=== PATIENT | female | born 1990 | race Caucasian/White ===

== ENCOUNTER 2017-05-13 13:14 | Inpatient (IN) ==
[2017-05-19] MEDS ORDERED: ZOLPIDEM 5 MG TABLET PO PRN (11:20)
[2017-05-19] MEDS ORDERED: SALINE FLUSH 10ml SYRINGE IV PRN ×2 (11:20→20:18)
[2017-05-19] MEDS ORDERED: HYDROCODONE/APAP 5mg/325mg TABLET PO PRN (11:20)
[2017-05-19] MEDS ORDERED: NALBUPHINE 10 MG/ML INJECTION IVP PRN (11:21)
[2017-05-19] MEDS ORDERED: CALCIUM CARBONATE Chewable 500mg TABLET PO PRN ×2 (11:21→20:18)
[2017-05-19] MEDS ORDERED: CARBOPROST 250 MCG/ML INJECTION IM PRN (11:21)
[2017-05-19] MEDS ORDERED: LIDOCAINE 1% (10mg/ml) 2mL INJ PF SDV ID PRN (11:21)
[2017-05-19] MEDS ORDERED: METHYLERGONOVINE 0.2 MG/ML INJECTION IM PRN (11:21)
[2017-05-19] MEDS ORDERED: MAG-AL + SIM ORAL LIQUID 30ml PO PRN (11:21)
[2017-05-19] MEDS ORDERED: ACETAMINOPHEN 500 MG TABLET PO PRN ×2 (11:21→20:18)
[2017-05-19] MEDS: LR 1,000 ML IV PRN ×3 (12:49→18:28)
--- NOTE | 2017-05-19 15:06 | Anesthesia Preoperative Report ---
Anesthesia Epidural/Spinal Rec - Date and Time Date: 05/19/17 Preoperative Diagnosis: 41 wk Procedure: Labor Epidural Plan: Epidural - Vital Signs Vital Signs: Temperature 98.4 F 05/19/17 12:33 Pulse Rate 60 05/19/17 12:33 Respiratory Rate 20 05/19/17 12:33 Blood Pressure 112/79 05/19/17 12:33 /Para: P:0 - Medictaions & Allergies Inpatient Medications: Current Medications Acetaminophen (Tylenol) 500 - 1,000 mg PO Q4H PRN PRN Reason: Pain Hydrocodone Bitart/Acetaminophen (Story 5/325) 1 - 2 tab PO Q4H PRN PRN Reason: Pain Al Hydroxide/Mg Hydroxide (Maalox Plus) 30 ml PO Q3H PRN PRN Reason: Indigestion Calcium Carbonate (Tums) 500 - 1,000 mg PO Q2H PRN PRN Reason: Indigestion Carboprost Tromethamine (Hemabate) 250 mcg IM O PRN PRN Reason: .Downtime Lactated Ringer's (Lactated Ringers) 1,000 mls @ 999 mls/hr IV .Q1H1M PRN Last Admin: 05/19/17 14:41 Dose: 999 mls/hr Lidocaine HCl (Xylocaine-Mpf 1% Vial) 0.2 mg ID O PRN PRN Reason: IV Start Methylergonovine Maleate (Methergine) 0.2 mg IM O PRN Misoprostol (Cytotec) 800 mcg VT ONCE PRN Nalbuphine HCl (Nubain) 5 - 10 mg IVP Q1H PRN Sodium Chloride (Iv Flush) 10 - 80 ml IV PRN PRN PRN Reason: Flushing Last Admin: 05/19/17 12:50 Dose: 10 ml Zolpidem Tartrate (Ambien) 5 mg PO O PRN PRN Reason: Insomnia Allergies/Adverse Reactions: Allergies Allergy/AdvReac Type Severity Reaction Status Date / Time isotretinoin AdvReac Verified 04/28/17 09:32 - Home Medications Home Medications: Home Medications Medication Instructions Recorded Confirmed Type Acetaminophen [Tylenol] 1,000 mg PO Q5H 04/28/17 04/28/17 History Butalb/Acetaminophen/Caffeine 1 each PO PRN 04/28/17 04/28/17 History [Fioricet] Vit 108/Iron/Folic AC 1 tab PO DAILY 04/28/17 04/28/17 History [ One Tablet] - Surgical History Anesthesia Reactions: None Hx Family Anesthesia Reaction: No History of Motion Sickness: No - Social History Smoking Status: Never smoker Second Hand Exposure: No Substance Use Type: does not use Alcohol Intake Frequency: does not drink Hx Chewing Tobacco Use: No - Pertinent Findings Lab Data: CBC and BMP 05/19/17 12:19 05/19/17 12:19 BMP 05/19/17 12:19 Sodium 141 Potassium 3.9 Chloride 110 H Carbon Dioxide 19 L BUN 6.0 L Creatinine 0.6 L Glucose 81 Calcium 9.6 Liver Function 05/19/17 Range/Units 12:19 Total Bilirubin 0.40 (0.20-1.30) MG/DL AST 18 (14-36) U/L ALT 31 (9-52) U/L Alkaline Phosphatase 120 (38-126) U/L Albumin 3.7 (3.5-5.0) G/DL Urine 05/19/17 Range/Units 13:00 Urine Color Yellow (YELLOW) Urine Clarity Sl cloudy Urine pH 7.5 (5.0-8.0) Ur Specific Handley 1.010 L (1.015-1.025) Urine Protein Negative (NEGATIVE) Urine Glucose (UA) Negative (NEGATIVE) EKG Rhythm: Normal Sinus Rhythm - Physical Exam Respiratory Exam: lungs clear Cardiovascular Exam: regular rate and rhythm, no murmur - Airway Assessment Mallampati Score: III TMD: 3 Fingerbreadths Neck Extension: good Overall Assessment: may be difficult mask vent, may be difficult intubation - ASA ASA Score: 2 - Discussion Discussion: Discussed risks/options/alternatives of anesthesia and questions answered. Patient consents. Nursing pain assessment noted. Anesthesia Discussion: spouse Attestation Statement: Prior to the delivery of any anesthetic medication, I examined the patient, developed the plan, obtained the patient's consent and discussed the risk and benefits of the procedure with the patient/guardian.
[2017-05-19] MEDS ORDERED: OXYTOCIN DRIP 30 UNIT/500 ML ML IV PRN (16:04)
[2017-05-19] MEDS ORDERED: D5LR 1,000 ML IV PRN (16:04)
[2017-05-19] MEDS ORDERED: DiphenhydrAMINE 50 MG/ML INJECTION IVP PRN (16:58)
[2017-05-19] MEDS ORDERED: ONDANSETRON 4 MG/2 ML INJECTION IVP PRN (16:58)
[2017-05-19] MEDS ORDERED: NALOXONE 0.4 MG/ML INJECTION IVP PRN (16:58)
[2017-05-19] MEDS ORDERED: ROPIVACAINE 1% 10MG/ML INJ 200 MG, SUFentanil 50 MCG in NS 100 ML EPI PRN (16:58)
[2017-05-19] MEDS ORDERED: CITRIC ACID/SODIUM CITRATE 30ml PO ONE (17:15)
[2017-05-19] MEDS ORDERED: CEFAZOLIN PREMIX (MC ONLY) 2 GM/50 ML BAG IV ONE (17:15)
[2017-05-19] MEDS ORDERED: FAMOTIDINE PB 20 MG/50 ML BAG IV ONE (17:15)
[2017-05-19] MEDS ORDERED: PHENYLEPHRINE INJ 10 MG/ML VIAL IV ONE (17:22)
[2017-05-19] MEDS ORDERED: SALINE FLUSH 10ml SYRINGE ONE (17:22)
[2017-05-19] MEDS ORDERED: ONDANSETRON 4 MG/2 ML INJECTION ONE (17:56)
[2017-05-19] MEDS: OXYTOCIN BOLUS BAG 30 UNIT/500 ML ML IV SCH ×2 (18:00→18:28)
[2017-05-19] MEDS: D5LR 1,000 ML IV SCH (18:47)
[2017-05-19] MEDS ORDERED: DiphenhydrAMINE 25 MG CAPSULE PO PRN (20:18)
[2017-05-19] MEDS ORDERED: SIMETHICONE 80 MG CHEWABLE TABLET PO PRN (20:18)
[2017-05-19] MEDS ORDERED: METOCLOPRAMIDE 10mg/2ml INJECTION IVP PRN (20:18)
[2017-05-19] MEDS ORDERED: NALOXONE 2 MG/2 ML INJECTION PFS IVP PRN (20:18)
[2017-05-19] MEDS ORDERED: OXYTOCIN DRIP 30 UNIT/500 ML ML IV SCH (20:18)
[2017-05-19] MEDS ORDERED: HYDROCORTISONE 2.5% CREAM 30gm RECTALLY PRN (20:18)
[2017-05-19] MEDS: HYDROCODONE/APAP 5mg/325mg TABLET PO PRN (20:49)
[2017-05-19] MEDS: IBUPROFEN 800 MG TABLET PO PRN (20:49)
[2017-05-19 21:08] VITALS: BMI 27.2
--- NOTE | 2017-05-19 22:55 | Anesthesia Postoperative Note ---
- Date and Time Date: 05/19/17 Time: 22:54 - Status Patient Participated in Evaluation: Patient Participated in Person Vital Signs: Temperature 98.4 F 05/19/17 12:33 Pulse Rate 76 05/19/17 21:40 Respiratory Rate 16 05/19/17 21:40 Blood Pressure 131/79 05/19/17 21:40 Pulse Oximetry 100 05/19/17 21:40 Respiratory Function: Airway Patent Cardiovascular Function: Regular Pulse EKG: Sinus Rhythm Mental Status: Alert and Oriented Pain Intensity: 0 Hydration: Taking PO Fluids, IV Infusing Complications During Recover: None Apparent - Follow-Up Instructions Instructions: Per Surgeon
[2017-05-20] MEDS: HYDROCODONE/APAP 5mg/325mg TABLET PO PRN ×5 (01:35→19:58)
[2017-05-20] MEDS: SIMETHICONE 80 MG CHEWABLE TABLET PO SCH ×3 (01:45→21:09)
[2017-05-20] MEDS ORDERED: LIDOCAINE 1.5% W/EPI 1:200,000 30ml SDV PF ONE (05:52)
[2017-05-20] MEDS: IBUPROFEN 800 MG TABLET PO PRN ×2 (07:13→15:29)
[2017-05-20] MEDS: D5LR 1,000 ML IV SCH ×2 (07:39→21:08)
[2017-05-20] MEDS: DOCUSATE CALCIUM 240 MG CAPSULE PO SCH (09:13)
--- OUTSIDE RECORDS SUMMARY | 2017-05-20 09:41 | External Medical Summary | Continuity of Care Document ---
:1990 Author Organization [facility] Address [address] [place], [place] [id number] Phone Support Name Relationship Address Phone Mitchel Fernandes [address] [place] [address] [phone] [place] [address] Ian Alvarado spouse [address] [facility] [phone] [place] [address] Allergies, Adverse Reactions, Alerts Substance Reaction Severity Status isotretinoin Unknown Active Medications Medication Instructions Dosage Effective Dates Status Comments (start - stop) ranitidine 150 mg take 1 tablet by 150 MG - Active tablet oral route every day at bedtime as needed loratadine 10 mg take 1 tablet by 10 MG - Active tablet oral route every day as needed butalbital-acetami take 1 - 2 capsule Not Available - Active nophen-caffeine 50 by oral route every mg-300 mg-40 mg 6 hours as needed capsule not to exceed 6 capsules per 24hrs Tylenol Extra take 2 tablet by 1000 MG - Active Strength 500 mg oral route every 6 tablet hours as needed as needed ORAL - Active TABLET Problems Condition Effective Dates (start - stop) Clinical Status Encntr for suprvsn of normal first - preg, second trimester 27 weeks gestation of - Oth related conditions, - third trimester 36 weeks gestation of - Encntr for suprvsn of normal first - preg, third trimester 37 weeks gestation of - Maternal care for oth - abnormality and damage, unsp 33 weeks gestation of - Maternal care for oth - abnormality and damage, unsp Encntr for suprvsn of normal first - preg, third trimester 33 weeks gestation of - Maternal care for oth - abnormality and damage, unsp Encntr for suprvsn of normal first - preg, third trimester 31 weeks gestation of - 29 weeks gestation of - Encntr for suprvsn of normal first - preg, third trimester Encntr for suprvsn of normal first - preg, third trimester Encounter for screening of - mother 35 weeks gestation of - Encntr for suprvsn of normal first - preg, third trimester 36 weeks gestation of - Encntr for suprvsn of normal first - preg, third trimester 38 weeks gestation of - Procedures Procedure Date Unknown Results Test Name Date and Time Measure Units Reference Range Abnormal Flag Comments Unknown Advance Directives Directive Yes / No Effective Date File Name Unknown Encounters Encounter Practice Location Reason(s) Diagnoses Date Provider Care Team Description For Visit Members Natasha [place] Encntr for Sep-1 Alpesh In Womens suprvsn of normal 1-201 [facility]. [facility] [place], first preg, third 7 700 [address] [email or web address] weeks Medical 1522, gestation of [facility] Donell Dixon, 120, [id number], [facility] [place], tel: [phone] , [place]. tel: [phone] Natasha [place] Encntr for Sep-0 Alpesh In Womens suprvsn of normal 5-201 [facility]. [facility] [place], first preg, third 7 700 PO [address] [email or web address] weeks Medical 1522, gestation of [facility] Donell Dixon, 120, [id number], [facility] [place], tel: [phone] , [place]. tel: [phone] Natasha [place] Encntr for Aug-2 Alpesh In Womens suprvsn of normal 9-201 [facility]. [facility] [place], first preg, third 7 700 PO Box [email or web address] weeks Medical 1522, gestation of [facility], Donell Dixon, 120, [id number], [place], tel:[phone] , [place]. tel: [phone] Associates Joe Ot Aug-2 Melo In Womens related 5-201 Neeru. Health KERRY, conditions, third 7 700 [address] [email or web address] weeks Medical 1522, gestation of [facility], Donell Dixon, 120, [id number], [place], tel: [phone] , [place]. tel: [phone] Natasha [place] Aug-2 Alpesh In Womens 5-201 Negar. Health EKRRY, 7 700 PO Box Medical 1522, [facility], Donell Dixon, 120, [id number], [place], tel:[phone] , [place]. tel: [phone] Natasha [place] Encntr for Aug-2 Alpesh In Womens suprvsn of normal - Negar. Health KERRY, first preg, third 7 700 PO Box trimesterEncounte Medical 1522, r for [facility] [place], screening of Donell Dixon, [email or web address] weeks 120, , gestation of [place], tel:[phone] , [place]. tel: [phone] Natasha [place] Maternal care for Aug-0 Alpesh Referring In Womens oth - Negar. Provider: Health KERRY, abnormality and 7 700 Negar PO Box damage, Medical Alpesh L, 1522, unspEncntr for Center [address] [place] [address], suprvsn of normal Donell Dixon, first preg, third 120, Center [id number], [email or web address] weeks Joe [facility] 120, [place] gestation of MAIKELJoe, tel: [phone] [place], , [place]. [id number]. tel: tel: [phone] Natasha [place] Maternal care for Aug-0 Alpesh In Womens Ultrasound oth - Neg[facility]. Health [place], abnormality and 7 700 PO Box damage, [email or web address] Medical 1522, weeks gestation [facility], of Donell Dixon, 120, [id number], [place], tel:+ [phone] , [place]. tel: [phone] Associates Joe Maternal care for Ha-2 Alpesh In Womens oth 4-201 Negar. [facility] [place], abnormality and 7 700 PO Box damage, Medical 1522, unspEncntr for [facility] [place], suprvsn of normal Donell Dixon, first preg, third 120, [id number], [email or web address] weeks [place], gestation of [place], tel:+ [phone] , [place]. tel: [phone] Associates Joe 29 weeks Ha-1 Alpesh In Womens gestation of 0-201 Neg[facility]. [facility] [place], pregnancyEncntr 7 700 PO Box for suprvsn of Medical 1522, normal first [place] Yash, preg, third Donell Dixon, trimester 120, , [place], tel:+ [phone] , [place]. tel: [phone] Associates Joe Encntr for Kevin-2 Alpesh In Womens suprvsn of normal 6-201 Neg[facility]. [facility] [place], first preg, 7 700 PO Box second Medical 1522, [email or web address] [facility] of Donell Dixon, 120, [id number], [place], tel:[phone] , [place]. tel: [phone] Natasha [place] May-2 Alfonso In Womens 3-201 Yung. 700 Health PA, 7 Medical PO Box Center 1522, Donell Dixon, 120, [place], [place], [id number], [place], [place] [id number] tel:+ , [place]. tel: [phone] Family History Family Member Diagnosis Age At Onset No family history of Pulmonary Embolism Maternal Grandfather Stroke No family history of Venous Thrombosis Maternal Grandmother Ovarian Cancer Maternal Grandfather Cardiovascular Disease Immunizations Vaccine Date Status Comments Tdap completed Source: New Immunization Record Payers Payer name Insurance type Covered democrat ID Authorization(s) [facility] [id number] [facility] [id number] Social History Type Description Quantity Date Captured Unknown Vital Signs Date / Height Weight BMI Pulse Blood Temperature Respiratory Body Head BMI Time: Rate Pressure Rate Surface Circumference percentile Area Unknown Chief Complaint And Reason For Visit Unknown Chief Complaint And Reason For Visit Reason For Referral Reason For Referral Unknown Plan Of Care Date Type Action Status Appointment Yulissa Alvarado BOOKED Future Order: Radiology Order Ultrasound OB Follow-up ([id number]) Ordered Date Type Problem Goal Intervention Status Start Date Unknown. History Of Present Illness Encounter Date Complaint History Of Present Illness This patient has no known history of present illness Functional Status Encounter Date Functional Assessment Cognitive Assessment Unknown Medications Administered Medication Instructions Dosage Effective Dates (start - stop) Status Comments Drug Treatment Unknown Instructions Date Instruction Additional Information Unknown
--- OUTSIDE RECORDS SUMMARY | 2017-05-20 09:41 | External Medical Summary | Continuity of Care Document ---
:1990 Author Organization [facility] Address [address] [place], [place] [address] Phone Support Name Relationship Address Phone Mitchel Fernandes [address] [place] [address] [phone] [place] [address] Ian Alvarado spouse [address] [facility] [phone] [place] [address] Allergies, Adverse Reactions, Alerts Substance Reaction Severity [...] Effective Dates (start - stop) Clinical Status Oth related conditions, - third trimester 36 weeks gestation of - Encntr for suprvsn of normal first - preg, second trimester 27 weeks gestation of - Encntr for suprvsn [...] weeks gestation of - Procedures Procedure Date OB Visit No Charge Results Test Name Date and Time Measure Units Reference Range Abnormal Flag Comments Unknown Advance Directives Directive Yes / No Effective Date File Name Unknown Encounters Encounter Practice Location Reason(s) Diagnoses Date Provider Care Team Description For Visit Members Natasha [place] Encntr for Sep-1 Alpesh In Womens suprvsn of normal 1-201 [facility]. [facility] [place], first preg, third 7 700 PO Box weeks Medical 1522, gestation of [facility] Donell Dixon, 120, [id number], [facility] [place], tel: [phone] , [place]. tel: [phone] Natasha [place] Encntr for Sep-0 Alpesh In Womens suprvsn of normal 5-201 Negar. [facility] [place], first preg, third 7 700 PO Box [email or web address] weeks Medical 1522, gestation of [facility] Donell Dixon, 120, [id number], [facility], tel: [phone] , [place]. tel: [phone] Natasha [place] Encntr for Aug-2 Alpesh In Womens suprvsn of normal 9-201 Negar. Health [place], first preg, third 7 700 PO Box [email or web address] weeks Medical 1522, gestation of [facility], Donell Dixon, 120, [id number], [place], tel:[phone] , [place]. tel: [phone] Associates Joe Ot Aug-2 Melo In Womens related 5-201 Neeru. Health KERRY, conditions, third 7 700 PO Box [email or web address] weeks Medical 1522, gestation of [facility], Donell Dixon, 120, [id number], [place], tel:[phone] , [place]. tel: [phone] Natasha [place] Encntr for Aug-2 Alpesh In Womens suprvsn of normal - Negar. Health KERRY, first preg, third 7 700 PO Box trimesterEncounte Medical 1522, r for [facility], screening of Donell Dixon, [email or web address] weeks 120, , gestation of [facility] [place], tel:[phone] , [place]. tel: [phone] Natasha [place] Maternal care for Aug-0 Alpesh Referring In Womens oth - Negar. Provider: Health KERRY, abnormality and 7 700 Negar PO Box damage, Medical Alpesh L, 1522, unspEncntr for Center [address] [place] [address], suprvsn of normal Donell Dixon, first preg, third 120, Center [id number], [email or web address] weeks Donell [place] 120, [place] gestation of Joe [place], tel: [phone] [place], , [place]. [id number]. tel: tel: [phone] Natasha [place] Maternal care for Aug-0 Alpesh In Womens Ultrasound oth - Negar. Health KERRY, abnormality and 7 700 PO Box damage, [email or web address] Medical 1522, weeks gestation [facility], of Donell Dixon, 120, [id number], [place], tel:[phone] , [place]. tel: [phone] Natasha [place] Maternal care for Ha-2 Alpesh In Womens oth 4-201 Negar. Health PA, abnormality and 7 700 PO Box damage, Medical 1522, unspEncntr for Center [place], suprvsn of normal Donell Dixon, first preg, third 120, [id number], [email or web address] weeks [place], gestation of [place], tel:[phone] , [place]. tel: [phone] Natasha [place] 29 weeks Ha-1 Alpesh In Womens gestation of 0-201 Negar. Health [place], pregnancyEncntr 7 700 PO Box for suprvsn of Medical 1522, normal first Center Yash, preg, third Donell Dixon, trimester 120, [id number], [place], tel:[phone] , [place]. tel: [phone] Natasha [place] Encntr for Kevin-2 Alpesh In Womens suprvsn of normal 6-201 Negar. Health PA, first preg, 7 700 PO Box second Medical 1522, [email or web address] weeks [place] Yash, gestation of Donell Dixon, 120, [id number], [place], tel:[phone] , [place]. tel: [phone] Natasha [place] May-2 Alfonso In Womens 3-201 Yung. 700 Health PA, 7 Medical PO Box Center 1522, oDnell Dixon, 120, [place], [place], [id number], [place], [place] [id number] tel:+ , [place]. tel: [phone] Family History Family Member Diagnosis Age At Onset No family history of Pulmonary Embolism Maternal Grandfather Stroke No family history of Venous Thrombosis Maternal Grandmother Ovarian Cancer Maternal Grandfather Cardiovascular Disease Immunizations Vaccine Date Status Comments Tdap completed Source: New Immunization Record Payers Payer name Insurance type Covered libertarian ID Authorization(s) [facility] [id number] [employer] [place] [id number] Social History Type Description Quantity Date Captured Alcohol Use Details No Caffeine Use Details Unknown Tobacco Use Status Unknown Smoking Status Never smoker Vital Signs Date / Height Weight BMI Pulse Blood Temperature Respiratory Body Head BMI Time: Rate Pressure Rate Surface Circumference percentile Area 170.10 38.1 108/ lbs 3 mm[Hg] 2:21 kg/m PM eter (2) Chief Complaint And Reason For Visit Unknown Chief Complaint And Reason For Visit Reason For Referral Reason For Referral Unknown Plan Of Care Date Type Action Status Appointment Yulissa Alvarado BOOKED Future Order: Radiology Order Ultrasound OB Follow-up ([id number]) Ordered Date Type Problem Goal Intervention Status [...]
--- OUTSIDE RECORDS SUMMARY | 2017-05-20 09:41 | External Medical Summary | Continuity of Care Document ---
:1990 Author Organization [facility] Address [address] [place], [place] [id number] Phone Support Name Relationship Address Phone Mitchel Fernandes [address] [place] [address] [phone] [place] [address] Ian Alvarado spouse [address] [facility] [phone] [place] [address] Allergies, Adverse Reactions, Alerts Substance Reaction Severity Status isotretinoin Unknown Active Medications Medication Instructions Dosage Effective Dates Status Comments (start - stop) butalbital-acetami take 1 - 2 capsule Not [...] Effective Dates (start - stop) Clinical Status Maternal care for oth - abnormality and damage, unsp 33 weeks gestation of - Encntr for suprvsn of normal first - preg, second trimester 27 weeks gestation of - Oth related conditions, - third trimester 36 weeks gestation of - Maternal care for oth - abnormality and damage, unsp Encntr for suprvsn of normal first - preg, third trimester 33 weeks gestation of - Maternal care for oth - abnormality and damage, unsp Encntr for suprvsn of normal first - preg, third trimester 31 weeks gestation of - Encntr for suprvsn of normal first - preg, third trimester 29 weeks gestation of - Encounter for screening of - mother Encntr for suprvsn of normal first - preg, third trimester 35 weeks gestation of - Procedures Procedure Date Ultrasnd preg uterus, flwup/repeat Results Test Name Date and Time Measure Units Reference Range Abnormal Flag Comments Unknown Advance Directives Directive Yes / No Effective Date File Name Unknown Encounters Encounter Practice Location Reason(s) Diagnoses Date Provider Care Team Description For Visit Members Natasha [place] Oth Mar-2 Melo In Womens related 5- Neeru. Health KERRY, conditions, 7 700 [address], third [place], [place], Center [id number], weeks Donell Dixon gestation of 120, tel: [place], [phone] [place], [id number] , [place]. tel: [phone] Natasha [place] Encounter for 2 Alpesh In Womens - Negar. Meet PAYNE, screening of 7 700 [address], motherEncntr [place], for suprvsn Center [id number], of normal Donell Dixon first preg, 120, tel: third [place], [address] [place], weeks [id number] gestation of , [place]. tel: [phone] Natasha [place] Maternal care 0 Alpesh Referring In Womens for oth 7-201 Negar. Provider: Health KERRY, abnormality 7 700 Negar [address], and damage, Medical Alpesh , [place], unspEncntr Center 700 [id number], for suprvsn Donell Dixon of normal 120, Center tel: first preg, Donell [place] 120, [id number] third MAIKEL, [place], [email or web address] [id number] [place], weeks , [place]. [id number]. gestation of tel: tel: [phone] Natasha [place] Maternal care Mar-0 Alpesh In Womens Ultrasound for oth 7-201 Negar. Health PA, abnormality 7 700 [address], and damage, [place], [email or web address] weeks Center [id number], gestation of Donell Dixon 120, tel:+[phone] [place] [phone] [place], [id number] , [place]. tel: [phone] Associates Joe Maternal care Ha-2 Alpesh In Womens for oth 4-201 Negar. Health PA, abnormality 7 700 [address], and damage, [place], unspEncntr Center [id number], for suprvsn Donell Dixon of normal 120, tel:[phone] first preg, [place], [address] third [place], [email or web address] [id number] weeks , [place]. gestation of tel: [phone] Associates Joe Encntr for Ha-1 Alpesh In Womens suprvsn of 0-201 Negar. Health PA, normal first 7 700 [address], preg, third [place], Center [id number], weeks Donell Dixon gestation of 120, tel:+21 [place], [address] [place], [id number] , [place]. tel: [phone] Associates Joe [place] for Kevin-2 Alpesh In Womens suprvsn of 6-201 Negar. Health PA, normal first 7 700 [address], preg, second [place], [email or web address] Center [id number], weeks Donell Dixon gestation of 120, tel:+21 Joe [phone] [place], [id number] , [place]. tel: [phone] Natasha [place] May-2 Alfonso In Womens 3-201 Yung. 700 Health [place], 7 Medical [address], Center [place], Donell Dixon [id number], 120, [place], tel:[phone] [place], [id number] , [place]. tel: [phone] Family History Family Member Diagnosis Age At Onset No family history of Pulmonary Embolism Maternal Grandfather Stroke No family history of Venous Thrombosis Maternal Grandmother Ovarian Cancer Maternal Grandfather Cardiovascular Disease Immunizations Vaccine Date Status Comments Tdap completed Source: New Immunization Record Payers Payer name Insurance type Covered democrat ID [facility] [id number] [id number] Social History Type Description Quantity Date Captured Unknown Vital Signs Date / Height Weight BMI Pulse Blood Temperature Respiratory Body Head BMI Time: Rate Pressure Rate Surface Circumference percentile Area Unknown Chief Complaint And Reason For Visit Unknown Chief Complaint And Reason For Visit Reason For Referral Reason For Referral Unknown Plan Of Care Date Type Action Status Appointment Yulissa Alvarado BOOKED Appointment Yulissa Alvarado BOOKED Appointment Yulissa Alvarado BOOKED Appointment Yulissa Alvarado BOOKED Future Order: Radiology Order Ultrasound OB Follow-up ([id number]) Ordered Date Type Problem Goal Intervention Status [...]
--- OUTSIDE RECORDS SUMMARY | 2017-05-20 09:41 | External Medical Summary | Continuity of Care Document ---
:1991 Author Organization [facility] Address [address] [place], [place] [id number] Phone Support Name Relationship Address Phone Mitchel Fernandes [address] [place] [address] [phone] [place] [address] Ian Alvarado spouse [address] [facility] [phone] [place] [address] Allergies, Adverse Reactions, Alerts Substance Reaction Severity [...] first preg, third 7 700 PO Box [email or web address] weeks Medical 1522, gestation of [facility] Donell Dixon, 120, [id number], [facility] [place], tel: [phone] , [place]. tel: [phone] Natasha [place] Encntr for Sep-0 Alpesh In Womens suprvsn of normal 5-201 Negar. Health PA, first preg, third 7 700 PO Box weeks Medical 1522, gestation of [facility] Donell Dixon, 120, [id number], [facility], tel: [phone] , [place]. tel: [phone] Natasha [place] Encntr for Aug-2 Alpesh In Womens suprvsn of normal 9-201 Negar. Health PA, first preg, third 7 700 PO Box [email or web address] weeks Medical 1522, gestation of [facility], Donell Dixon, 120, [id number], [place], tel:[phone] , [place]. tel: [phone] Associates Joe Ot Aug-2 Melo In Womens related 5-201 Neeru. Health KERRY, conditions, third 7 700 PO Box [email or web address] weeks Medical 1522, gestation of [facility], Donell Dixon, 120, [id number], [place], tel:[phone] , [place]. tel: [phone] Natasha [place] Encntr for Aug-2 Alpesh In Womens suprvsn of normal - Negar. Health KERRY, first preg, third 7 700 PO Box trimesterEncounte Medical 1522, r for [facility], screening of Donell Dixon, weeks 120, , gestation of [facility] [place], tel:[phone] , [place]. tel: [phone] Natasha [place] Maternal care for Aug-0 Alpesh Referring In Womens oth - Negar. Provider: Health KERRY, abnormality and 7 700 Negar PO Box damage, Medical Alpesh L, 1522, unspEncntr for Center [address] [place] [address], suprvsn of normal Donell Dixon, first preg, third 120, Center [id number], [email or web address] weeks Donell [place] 120, [place] gestation of Joe KO, tel: [phone] [place], , [place]. [id number]. tel: tel: [phone] Natasha [place] Maternal care for Aug-0 Alpesh In Womens Ultrasound oth - Negar. Health KERRY, abnormality and 7 700 PO Box damage, [email or web address] Medical 1522, weeks gestation [facility], of Donell Dixon, 120, [id number], [place], tel:[phone] , [place]. tel: [phone] Natasha [place] Maternal care for Ha-2 Alpesh In Womens oth 4-201 Negar. Health PA, abnormality and 7 700 PO Box damage, Medical 1522, unspEncntr for Center [place], suprvsn of normal Donell Dixon, first preg, third 120, [id number], [email or web address] weeks [place], gestation of [place], tel:[phone] , [place]. tel: [phone] Natasha [place] 29 weeks Ha-1 Alpesh In Womens gestation of 0-201 Negar. Health PA, pregnancyEncntr 7 700 PO Box for suprvsn of Medical 1522, normal first Center Yash, preg, third Donell Dixon, trimester 120, [id number], [place], tel:[phone] , [place]. tel: [phone] Natasha [place] Encntr for Kevin-2 Alpesh In Womens suprvsn of normal 6-201 Negar. Health PA, first preg, 7 700 PO Box second Medical 1522, [email or web address] weeks [place] Yash, gestation of Donell Dixon, 120, [id number], [place], tel:[phone] , [place]. tel: [phone] Natasha [place] May-2 Alfonso In Womens 3-201 Yung. 700 Health PA, 7 Medical PO Box Center 1522, Donell Dixon, 120, [place], [place], [id number], [place] [id number] tel:+ , [place]. tel: [phone] Family History Family Member Diagnosis Age At Onset No family history of Pulmonary Embolism Maternal Grandfather Stroke No family history of Venous Thrombosis Maternal Grandmother Ovarian Cancer Maternal Grandfather Cardiovascular Disease Immunizations Vaccine Date Status Comments Tdap completed Source: New Immunization Record Payers Payer name Insurance type Covered constitution party ID Authorization(s) [facility] CI [id number] [employer] CI [id number] Social History Type Description Quantity Date Captured [...] Plan Of Care Date Type Action Status Future Order: Radiology Order Ultrasound OB Follow-up ([id number]) Ordered Date Type Problem Goal Intervention Status [...]
--- OUTSIDE RECORDS SUMMARY | 2017-05-20 09:41 | External Medical Summary | Continuity of Care Document ---
:1991 Author Organization [facility] [employer] [facility] Address [address] [place], [place] [id number] Phone Support Name Relationship Address Phone Mitchel Fernandes [address] [place] [address] [phone] [place] [address] Ian Alvarado spouse [address] [facility] [phone] [place] [address] Allergies, Adverse Reactions, Alerts Substance Reaction Severity Status isotretinoin Unknown Active Medications Medication Instructions Dosage Effective Dates (start - Status Comments stop) ORAL TABLET - Active Problems Condition Effective Dates (start - stop) Clinical Status Encntr for suprvsn of normal first - preg, third trimester 29 weeks gestation of - Encntr for suprvsn of normal first - preg, second trimester 27 weeks gestation of - Maternal care for oth - abnormality and damage, unsp Encntr for suprvsn of normal first - preg, third trimester 31 weeks gestation of - Procedures Procedure Date OB Visit No Charge Glucose test Hemoglobin count, colorimetric Hematocrit blood count Venpnctr fngr/heel/ear stick routne Results Test Name Date and Time Measure Units Reference Range Abnormal Flag Comments Panel Description: Glucose [Mass/volume] in Serum or Plasma --1 hour post 50 g glucose PO GLUCOSE, GESTATIONAL 81 mg/dL <140 N Test performed at [facility] (50G)-140 09:34:00 [facility] [id number] [place] [address]Iuhgfbkg: TRACE ESPARZA DO,MPH Panel Description: HEMOGLOBIN + HEMATOCRIT HEMOGLOBIN 09:34:00 12.3 g/dL 11.7-15.5 N HEMATOCRIT 09:34:00 36.3 % 35.0-45.0 N REPORT COMMENT:FASTING :NOTest performed at [employer] [id number] [place] [address]Zrbpncdb: TRACE ESPARZA DO,MPH Advance Directives Directive Yes / No Effective Date File Name Unknown Encounters Encounter Practice Location Reason(s) Diagnoses Date Provider Care Team Description For Visit Members [facility] Negar. PA, PO Box abnormality 700 1522, and damage, [place], [place], unspEncntr Center , , [place] for suprvsn Donell 120, tel:[phone] of normal Joe, 67 first preg, [place], third [id number], [email or web address] [place]. weeks tel:[phone] gestation of [id number] [facility] for [facility] Negar. PA, PO Box normal first 700 1522, preg, third [place], [place], [email or web address] , [place] weeks Donell 120, tel:[phone] gestation of Joe, 6790 [place], [id number], [place]. tel:[phone] [facility] for [facility] Negar. PA, PO Box normal first 700 1522, preg, second [place], [place], [email or web address] , [place] weeks Donell 120, tel:[phone] gestation of Joe, 6790 [place], [id number], [place]. tel:[phone] [facility] -2016 Yung. 700 [place], PO Box Medical 1522, Center Yash [place], Donell 120, [id number], [place] Joe, tel:[phone] [place], [facility] [id number], [place]. tel:[phone] Family History Family Member Diagnosis Age At Onset No family history of Pulmonary Embolism Maternal Grandfather Stroke No family history of Venous Thrombosis Maternal Grandmother Ovarian Cancer Maternal Grandfather Cardiovascular Disease Immunizations Vaccine Date Status Comments Unknown Payers Payer name Insurance type Covered libertarian ID Authorization(s) [facility] [id number] Social History Type Description Quantity Date Captured Alcohol Use Details No Caffeine Use Details Unknown Tobacco Use Status Never smoked tobacco Smoking Status Never smoker Vital Signs Date / Height Weight BMI Pulse Blood Temperature Respiratory Body Head BMI Time: Rate Pressure Rate Surface Circumference percentile Area 165.50 37.1 lbs 0 mm[Hg] 8:30 kg/m AM eter (2) 36.4 5 mm[Hg] 8:28 kg/m AM eter (2) Chief Complaint And Reason For Visit Unknown Chief Complaint And Reason For Visit Reason For Referral Reason For Referral Unknown Plan Of Care Date Type Action Status Appointment Yulissa Alvarado BOOKED Appointment Yulissa Alvarado BOOKED Appointment Yulissa Alvarado BOOKED Appointment Yulissa Alvarado BOOKED Appointment Yulissa Alvarado BOOKED Appointment Yulissa Alvarado BOOKED Appointment Yulissa Alvarado BOOKED Date Type Problem Goal Intervention Status Start [...]
--- OUTSIDE RECORDS SUMMARY | 2017-05-20 09:41 | External Medical Summary | Continuity of Care Document ---
:1991 Author Organization [facility] Address [address] [place], [place] [id number] Phone Support Name Relationship Address Phone Mitchel Fernandes [address] [place] [address] [phone] [place] [address] Ian Alvarado spouse [address] [facility] [phone] [place] [address] Allergies, Adverse Reactions, Alerts Substance Reaction Severity [...] third trimester 33 weeks gestation of - Encntr for [...] Procedures Procedure Date OB Visit No Charge Immuniz admnin, 1 vac, sngl/combo 19 Yrs + TDAP VACCINE >7 IM Results Test Name Date and Time Measure Units Reference Range Abnormal Flag Comments Unknown Advance Directives Directive Yes / No Effective Date File Name Unknown Encounters Encounter Practice Location Reason(s) Diagnoses Date Provider Care Team Description For Visit Members Natasha [place] Oth Mar-2 Melo In Womens related -201 Neeru. Health KERRY, conditions, 7 [address], third [place], [email or web address] Center [id number], weeks Donell Dixon gestation of 120, tel: [place], [phone] [place], [id number] , [place]. tel: [phone] Natasha [place] Encounter for Mar-2 Alpesh In Womens - Negar. Health KERRY, screening of 7 700 [address], motherEncntr [place], for suprvsn Center [id number], of normal Donell Dixon first preg, 120, tel: third [place], [address] [email or web address] [place], weeks [id number] gestation of , [place]. tel: [phone] Natasha [place] Maternal care Aug-0 Alpesh Referring In Womens for oth -201 Negar. Provider: Health KERRY, abnormality 7 700 Negar [address], and damage, Medical [place], unspEncntr Center 700 [id number], for suprvsn Donell Dixon [facility] of normal 120, Center tel: first preg, Joe [facility] 120, [address] third [place], [place], [id number] [place], weeks , [place]. [id number]. gestation of tel: tel:[phone] Associates Joe Maternal care Aug-0 Alpesh In Womens Ultrasound for oth 7-201 Negar. Health PA, abnormality 7 700 [address], and damage, [place], unsp33 weeks Center [id number], gestation of Donell Dixon [place] 120, tel:+[phone] Joe, [address] [place], [id number] , [place]. tel: [phone] Associates Joe Maternal care Ha-2 Alpesh In Womens for oth 4-201 Negar. Health PA, abnormality 7 700 [address], and alana, [place], unspEncntr Center [id number], for suprvsn Donell Dixon of normal 120, tel:+21 first preg, [place], [address] third [place], [email or web address] [id number] weeks , [place]. gestation of tel: [phone] Associates Joe Encntr for Ha-1 Alpesh In Womens suprvsn of 0-201 Negar. Health PA, normal first 7 700 [address], preg, third [place], [email or web address] Center [id number], weeks Donell Dixon [place] gestation of 120, tel:+ Joe, [address] [place], [id number] , [place]. tel: [phone] Associates Joe Georgentr for Kevin-2 Alpesh In Womens suprvsn of 6-201 Negar. Health PA, normal first 7 700 [address], preg, second [place], [email or web address] Center [id number], weeks Donell Dixon [place] gestation of 120, tel:[phone] Joe, [address] [place], [id number] , [place]. tel: [phone] Associates Joe May-2 Alfonso In Womens 3-201 Yung. 700 Health PA, 7 Medical [address], [place], Donell Dixon [id number], 120, [place] Joe, tel:[phone] MAIKEL, [id number] , [place]. tel: [phone] Family History Family Member Diagnosis Age At Onset No family history of Pulmonary Embolism Maternal Grandfather Stroke No family history of Venous Thrombosis Maternal Grandmother Ovarian Cancer Maternal Grandfather Cardiovascular Disease Immunizations Vaccine Date Status Comments Tdap completed Source: New Immunization Record Payers Payer name Insurance type Covered democrat ID Authorization(s) [facility] [id number] [employer] [id number] Social History Type Description Quantity Date Captured [...] Future Order: Radiology Order Ultrasound OB Follow-up ([id number]) Ordered Date Type Problem Goal Intervention Status [...]
--- OUTSIDE RECORDS SUMMARY | 2017-05-20 09:42 | External Medical Summary | Continuity of Care Document ---
:1991 Author Organization [facility] Address [address] [place], [place] [address] Phone Support Name Relationship Address Phone Mitchel Fernandes [address] [place] [address] [phone] [place] [address] Ian Alvarado spouse [address] [facility] [phone] [place] [address] Allergies, Adverse Reactions, Alerts Substance Reaction Severity [...] third trimester 36 weeks gestation of - Procedures Procedure Date OB Visit No Charge Cult, pathgnc orgnsm, screen Results Test Name Date and Time Measure Units Reference Range Abnormal Flag Comments Panel Description: STREPTOCOCCUS, GROUP B CULTURE STREPTOCOCCUS, GROUP B 10:55:00 SEE NOTE STREPTOCOCCUS, GROUP B CULTURE CULTURE MICRO NUMBER: [id number] TEST STATUS: FINAL SPECIMEN SOURCE: VAGINAL/ANORECTAL SPECIMEN QUALITY: ADEQUATE RESULT: No group B Streptococcus isolatedTest performed at [email or web address] [id number] [place] [address]Unngreaj: TRACE ESPARZA DO,MPH Advance Directives Directive Yes / No Effective Date File Name Unknown Encounters Encounter Practice Location Reason(s) Diagnoses Date Provider Care Team Description For Visit Members Natasha Peacock for Apr- Alpesh In Womens suprvsn of normal 5-201 Negar. Health PA, first preg, third 7 700 PO Box [email or web address] weeks Medical 1522, gestation of [facility] Donell Dixon, 120, [id number], [place] MAIKEL [place], tel:-[phone] 734167 , [place]. tel:[phone] Natasha Peacock for Mar- Alpesh In Womens suprvsn of normal 9-201 Negar. Health PA, first preg, third 7 700 PO Box [email or web address] weeks Medical 1522, gestation of [facility], Donell Dixon, 120, [id number], [place], [place], tel:[phone] , [place]. tel: [phone] Natasha [place] Ot Aug-2 Melo In Womens related 5-201 Neeru. Health PA, conditions, third 7 700 PO Box [email or web address] weeks Medical 1522, gestation of [facility], Donell Dixon, 120, [id number], [place], tel: [phone] , [place]. tel: [phone] Natasha [place] Encntr for Aug-2 Alpesh In Womens suprvsn of normal -201 Negar. Health PA, first preg, third 7 700 PO Box trimesterEncounte Medical 1522, r for [facility], screening of Donell Dixon, [email or web address] weeks 120, , gestation of [place], tel:[phone] , [place]. tel: [phone] Natasha [place] Maternal care for Aug-0 Alpesh Referring In Womens oth 7-201 Negar. Provider: Health PA, abnormality and 7 700 Negar PO Box damage, Medical Alpesh L, 1522, unspEncntr for Center [address] [place] [address], suprvsn of normal Donell Dixon, first preg, third 120, Center [id number], [email or web address] weeks Donell [place] 120, [place] gestation of Joe KO, tel: [phone] [place], , [place]. [id number]. tel: tel: [phone] Natasha [place] Maternal care for Aug-0 Alpesh In Womens Ultrasound oth -201 Negar. Health PA, abnormality and 7 700 PO Box damage, [email or web address] Medical 1522, weeks gestation [facility], of Donell Dixon, 120, [id number], [place], tel:[phone] , [place]. tel: [phone] Natasha [place] Maternal care for Ha-2 Alpesh In Womens oth 4-201 Negar. Health PA, abnormality and 7 700 PO Box damage, Medical 1522, unspEncntr for Center [place], suprvsn of normal Donell Dixon, first preg, third 120, [id number], [email or web address] weeks [place], gestation of [place], tel:[phone] [address] , [place]. tel: [phone] Associates Joe Encntr for Ha-1 Alpesh In Womens suprvsn of normal 0-201 Negar. Health PA, first preg, third 7 700 PO Box [email or web address] weeks Medical 1522, gestation of [facility], Donell Dixon, 120, [id number], [place], [place], tel:+ [phone] , [place]. tel: [phone] Associates Joe Encntr for Kevin-2 Alpesh In Womens suprvsn of normal 6-201 Negar. Health PA, first preg, 7 700 PO Box second Medical 1522, [email or web address] weeks [facility], gestation of Donell Dixon, 120, [id number], [place], [place], tel:[phone] , [place]. tel: [phone] Associates Joe May-2 Alfonso In Womens 3-201 Yung. 700 Health PA, 7 Medical PO Box Center 1522, Donell Dixon, 120, [place], [place], [id number], [place], [place] [id number] tel:+ , [place]. tel: [phone] Family History Family Member Diagnosis Age At Onset No family history of Pulmonary Embolism Maternal Grandfather Stroke No family history of Venous Thrombosis Maternal Grandmother Ovarian Cancer Maternal Grandfather Cardiovascular Disease Immunizations Vaccine Date Status Comments Tdap completed Source: New Immunization Record Payers Payer name Insurance type Covered republican ID Authorization(s) [employer] [id number] [employer] [id number] Social History Type Description Quantity Date Captured Alcohol Use Details No Caffeine Use Details Unknown Tobacco Use Status Unknown Smoking Status Never smoker Vital Signs Date / Height Weight BMI Pulse Blood Temperature Respiratory Body Head BMI Time: Rate Pressure Rate Surface Circumference percentile Area 169.40 37.9 125/82 -2017 lbs 8 mm[Hg] 9:59 kg/m AM eter (2) 37.4 -2016 4 9:50 kg/m AM eter (2) Chief Complaint And Reason For Visit Unknown Chief Complaint And Reason For Visit Reason For Referral Reason For Referral Unknown Plan Of Care Date Type Action Status Appointment Yulissa Alvarado BOOKED Appointment Yulissa Alvarado BOOKED Future Order: Radiology Order Ultrasound OB Follow-up ([id number]) Ordered Date Type Problem Goal Intervention Status [...]
--- OUTSIDE RECORDS SUMMARY | 2017-05-20 09:42 | External Medical Summary | Continuity of Care Document ---
:1991 Author Organization [facility] Address [address] [place], [place] [address] Phone Support Name Relationship Address Phone Mitchel Fernandes [address] [place] [address] [phone] [place] [address] Ian Alvarado spouse [address] [facility] [phone] [place] [address] Allergies, Adverse Reactions, Alerts Substance Reaction Severity [...] third trimester 37 weeks gestation of - Encntr for suprvsn [...] for oth - abnormality and damage, unsp 31 weeks gestation of - Encntr for [...] third trimester 38 weeks gestation of - Encntr for suprvsn of normal first - preg, third trimester 39 weeks gestation of - Procedures Procedure Date OB Visit No Charge Results Test Name Date and Time Measure Units Reference Range Abnormal Flag Comments Unknown Advance Directives Directive Yes / No Effective Date File Name Unknown Encounters Encounter Practice Location Reason(s) Diagnoses Date Provider Care Team Description For Visit Members Associates Joe Encntr for Sep-1 Alpesh In Womens suprvsn of normal 9-201 Negar. Health PA, first preg, third 7 700 PO Box [email or web address] weeks Medical 1522, gestation of [facility] Donell Dixon, 120, [id number], [facility] [place], tel:[phone] [phone] , [place]. tel: [phone] Natasha [place] Encntr for Sep-1 Alpesh In Womens suprvsn of normal 1-201 Negar. Health PA, first preg, third 7 700 PO Box [email or web address] weeks Medical 1522, gestation of [facility] Donell Dixon, 120, [id number], [facility] [place], tel:[phone] , [place]. tel: [phone] Associates Joe Encntr for Sep-0 Alpesh In Womens suprvsn of normal 5-201 Negar. Health KERRY, first preg, third 7 700 PO Box [email or web address] weeks Medical 1522, gestation of [facility], Donell Dixon, 120, [id number], [place], tel:[phone] , [place]. tel: [phone] Associates Joe Encntr for Aug-2 Alpesh In Womens suprvsn of normal 9-201 Negar. Health KERRY, first preg, third 7 700 PO Box [email or web address] weeks Medical 1522, gestation of [facility], Donell Dixon, 120, [id number], [place], [place], tel:[phone] , [place]. tel: [phone] Associates Joe Ot Aug-2 Melo In Womens related 5-201 Neeru. Health KERRY, conditions, third 7 700 PO Box [email or web address] weeks Medical 1522, gestation of [facility], Donell Dixon, 120, [id number], [place], tel:[phone] , [place]. tel: [phone] Natasha [place] Encntr for Aug-2 Alpesh In Womens suprvsn of normal 1-201 Negar. Health KERRY, first preg, third 7 700 PO Box trimesterEncounte Medical 1522, r for [facility], screening of Donell Dixon, [email or web address] weeks 120, , gestation of [facility] [place], tel:[phone] , [place]. tel: [phone] Natasha [place] Maternal care for Aug-0 Alpesh Referring In Womens oth 7-201 Negar. Provider: Health KERRY, abnormality and 7 700 Negar PO Box damage, Medical Alpesh L, 1522, unspEncntr for Center [facility] [place], suprvsn of normal Donell Dixon, first preg, third 120, Center [id number], [email or web address] weeks Donell [place] 120, [place] gestation of Joe KO, tel:[phone] [place], , [place]. . tel: tel: [phone] Associates Joe Maternal care for Aug-0 Alpesh In Womens Ultrasound oth 7-201 Negar. Health PA, abnormality and 7 700 PO Box damage, [email or web address] Medical 1522, weeks gestation [facility] [place], of Donell Dixon, 120, , [place], [place], tel:[phone] , [place]. tel: [phone] Associates Joe Maternal care for Ha-2 Alpesh In Womens oth 4-201 Negar. Health PA, abnormality and 7 700 PO Box damage, [email or web address] Medical 1522, weeks gestation [facility], of Donell Dixon, pregnancyEncntr 120, [id number], for suprvsn of [facility] normal first [place], tel: preg, third [id number] trimester , [place]. tel: [phone] Associates Joe 29 weeks Ha-1 Alpesh In Womens gestation of 0-201 Negar. Health PA, pregnancyEncntr 7 700 PO Box for suprvsn of Medical 1522, normal first [place], preg, third Donell Dixon, trimester 120, , [place], [place], tel:[phone] , [place]. tel: [phone] Associates Joe Encntr for Kevin-2 Alpesh In Womens suprvsn of normal 6-201 Negar. Health KERRY, first preg, 7 700 PO Box second Medical 1522, [email or web address] weeks [place], gestation of Donell Dixon, 120, [id number], [place], [place], tel: [phone] , [place]. tel: [phone] Associates Joe May-2 Alfonso In Womens 3-201 Yung. 700 Health PA, 7 Medical PO Box Center 1522, Donell Dixon, 120, [place], [place], [id number], [place], [place] [id number] tel: , [place]. tel: [phone] Family History Family Member Diagnosis Age At Onset No family history of Pulmonary Embolism Maternal Grandfather Stroke No family history of Venous Thrombosis Maternal Grandmother Ovarian Cancer Maternal Grandfather Cardiovascular Disease Immunizations Vaccine Date Status Comments Tdap completed Source: New Immunization Record Payers Payer name Insurance type Covered libertarian ID Authorization(s) [employer] [id number] [employer] [id number] Social History Type Description Quantity Date Captured Alcohol Use Details No Caffeine Use Details Unknown Tobacco Use Status Unknown Smoking Status Never smoker Vital Signs Date / Height Weight BMI Pulse Blood Temperature Respiratory Body Head BMI Time: Rate Pressure Rate Surface Circumference percentile Area 171.80 38.5 lbs 1 mm[Hg] 11:36 kg/m AM eter (2) Chief Complaint And Reason For Visit Unknown Chief Complaint And Reason For Visit Reason For Referral Reason For Referral Unknown Plan Of Care Date Type Action Status Appointment Yulissa Alvarado KEPT Future Order: Radiology Order Ultrasound OB Follow-up ([id number]) Ordered Date Type Problem Goal Intervention Status [...]
--- OUTSIDE RECORDS SUMMARY | 2017-05-20 09:42 | External Medical Summary | Continuity of Care Document ---
:1990 Author Organization [facility] Allergies Active Description Code Type Severity Reaction Onset Reported/ Identified Relationship Clinical to Patient Status Yes isotretinoin 1 1 N/A N/A Medications Medication Packaging Start Date Stop Date Route Dosage Sig Capsule 04/15/2017 take 1 BUTALBITAL-ACETA - 2 capsule MINOPHEN-CAFFE by oral route every 6 hours as needed not to exceed 6 capsules per 24hrs Problems Date Dx Coded Attending Type Code Diagnosis Diagnosed By 03/28/2017 Negar Betts O35.8xx0 Maternal care for L oth abnormality and damage, [facility] 03/28/2017 Negar Betts Z34.03 Encntr for suprvsn L of normal first preg, third trimester 03/28/2017 Negar Betts Z3A.33 33 weeks gestation L of 03/28/2017 Negar Betts O35.8xx0 Maternal care for L oth abnormality and damage, [facility] 03/28/2017 Negar Betts Z3A.33 33 weeks gestation L of Procedures Code Description Performed By Performed On 03/28/2017 54138 Ultrasnd preg uterus, flwup/repeat OB 03/28/2017 [id number] Visit No Charge Results Encounters ACCT No. Visit Discharge Status Pt. Type Provider Facility Loc./Unit Complaint Date/Time [id number] 05/02/2017 05/02/2017 [facility] Outpatient [facility], 15:00:00 23:59:59 Negar L [id number] 04/26/2017 04/26/2017 [facility] Outpatient [facility], 11:30:00 23:59:59 Negar L [id number] 04/19/2017 04/19/2017 [facility] Outpatient [facility], 11:30:00 23:59:59 Negar L [id number] 04/15/2017 04/15/2017 [facility] Outpatient Melo, 14:15:00 23:59:59 Neeru Clinton [id number] 04/15/2017 04/15/2017 [facility] Alpesh, 11:25:00 23:59:59 Negar L [id number] 04/11/2017 04/11/2017 [facility] Alpesh, 09:30:00 23:59:59 Negar L [id number] 03/28/2017 03/28/2017 [facility] Alpesh, 09:30:00 23:59:59 Negar L [id number] 03/28/2017 03/28/2017 [facility] Alpesh, 09:15:00 23:59:59 Negar L [id number] 03/14/2017 03/14/2017 [facility] Alpesh, 11:00:00 23:59:59 Negar L [id number] 02/28/2017 02/28/2017 [facility] Alpesh, 08:15:00 23:59:59 Negar L [id number] 02/14/2017 02/14/2017 [facility] Alpesh, 10:15:00 23:59:59 Negar L [id number] 01/13/2017 01/13/2017 [facility] Out[facility] Leyla, 10:31:00 23:59:59 Karina Agustin [id number] 01/11/2017 01/11/2017 [facility] Out[facility] Alfonso, 11:43:00 23:59:59 Yung Avalos [id number] 05/10/2017 Document 11:15:00 Registration
--- OUTSIDE RECORDS SUMMARY | 2017-05-20 09:42 | External Medical Summary | Continuity of Care Document ---
:1990 Author Organization [facility] Address [address] [place] [phone] Phone Support Name Relationship Address Phone Mitchel Fernandes [address] [place] [address] [phone] [place] [address] Ian Alvarado spouse [address] [phone] [place] [address] Allergies, Adverse Reactions, Alerts Substance Reaction Severity [...] third trimester 29 weeks gestation of - Procedures Procedure Date OB Visit No Charge Results Test Name Date and Time Measure Units Reference Range Abnormal Flag Comments Unknown Advance Directives Directive Yes / No Effective Date File Name Unknown Encounters Encounter Practice Location Reason(s) Diagnoses Date Provider Care Team Description For Visit Members Natasha Diaz Maternal care Aug-0 Alpesh Referring In Womens for oth 7-201 Negar. Provider: Health [place], abnormality 7 700 Negar [address], [facility] [place] [place] Center 700 , for suprsevero Dixon [facility] of normal 120, Center tel:+21 first preg, Diaz, Donell 120, [address] third [place], Diaz, [id number] [place], weeks , [place]. [id number]. gestation of tel: tel:[phone] [facility] Maternal care Mar-0 Alpesh In Womens Ultrasound for oth 7-201 Negar. Health [place], abnormality 7 700 [address], and alana, [place], [place], unsp33 weeks Center [id number], gestation of Donell Dixon 120, tel:+21 Diaz, [address] [place], [id number] , [place]. tel: [phone] [facility] Feb-2 Alpesh In Womens for oth 4-201 Negar. Health [place], abnormality 7 700 [address], and alana [place], unspEncntr Center [id number], for sandra Dixon [facility] of normal 120, tel:21 first preg, Diaz, [address] third [place], [id number] weeks , [place]. gestation of tel: [phone] [facility] for Feb-1 Alpesh In Womens suprvsn of 0-201 Negar. Health [place], normal first 7 700 [address], preg, third [place], [place], [email or web address] Center [id number], weeks Donell Dixon gestation of 120, tel:+21 Joe, [address] [place], [id number] , [place]. tel: [phone] [facility] for Kevin-2 Alpesh In Womens suprvsn of 6-201 Negar. Health [place], normal first 7 700 [address], preg, second [place], [place], [email or web address] Center [id number], weeks Donell Dixon [place] gestation of 120, tel:+21 Joe, [address] [place], [id number] , [place]. tel: [phone] Associates [facility] December- Alfonso In Womens 3-[address], 7 Medical [address], [place], [place], Donell Dixon [id number], 120, [place] Joe, tel:+ MAIKEL, [phone] , [place]. tel: [phone] Family History Family Member Diagnosis Age At Onset No family history of Pulmonary Embolism Maternal Grandfather Stroke No family history of Venous Thrombosis Maternal Grandmother Ovarian Cancer Maternal Grandfather Cardiovascular Disease Immunizations Vaccine Date Status Comments Tdap completed Source: New Immunization Record Payers Payer name Insurance type Covered libertarian ID Authorization(s) [employer] [place] [id number] [employer] [place] [id number] Social History Type Description Quantity Date Captured [...] Future Order: Radiology Order Ultrasound OB Follow-up ([id number]) Ordered Date Type Problem Goal Intervention Status [...]
--- NOTE | 2017-05-20 11:21 | Operative Note ---
DATE OF SURGERY 05/19/2017 PREOPERATIVE DIAGNOSIS Nonreassuring heart tones. POSTOPERATIVE DIAGNOSIS Nonreassuring heart tones, delivered. PROCEDURES Primary low transverse section. SURGEON Negar Betts MD [employer] Yung Hamilton MD ANESTHESIA Spinal epidural VP CLIENT SERVICES Duncan Christianson CRNA EBL 900 mL INDICATION FOR PROCEDURE Mrs. Alvarado called our office today with reports of a severe headache. As she is 40 weeks and 6 days and scheduled for an induction of labor the following day, I advised that she come to [facility]. On arrival she had no signs of preeclampsia except for the headache. This was alleviated somewhat with IV fluid bolus. However, heart tones were category II. She then developed repetitive decelerations. I discussed the situation with the patient and her . I voiced my concerns about how remote she was from delivery and hadn' t even started labor yet. I had placed a Stanley bulb by this point but I recommended we go ahead and try Pitocin. If the baby tolerated labor, we would keep going. If not, we would then stop and performed . Unfortunately , heart tones did not improve and in fact she had more decelerations. We discussed the potential risks of and she agrees that this was in her and baby's best interest. DESCRIPTION OF PROCEDURE Mrs. Alvarado was brought to the OR and given regional analgesia to good effect. She was then placed on the OR table in supine position with left lateral displacement. A Stanley catheter was placed to dependent drain. The abdomen was prepped and draped in the usual sterile fashion. Pfannenstiel skin incision was made with a sharp knife. This was carried down to fascia. Fascia was incised transversely. Fascia was then tented up. This was bluntly and sharply dissected free of rectus muscles. Rectus muscles were bluntly divided. The peritoneum was tented up and sharply entered. This was then extended vertically. The bladder blade was inserted. Vesicouterine fold of peritoneum was tented up and incised transversely. The bladder flap was then bluntly created. Bladder blade was reinserted to protect the bladder. A low transverse uterine incision was made with a sharp knife. There was thick meconium. Baby was delivered without difficulty in the vertex presentation. Baby was bulb suctioned on the abdomen. Dr. Villalobos was there. Cord was doubly clamped and cut and baby was then given to Dr. Villalobos and his team for care. This is a liveborn male with Apgars of 8/9/9. The placenta was then expressed intact. It had a normal configuration and a normal-appearing three-vessel cord. The uterus was swept clear of membranes and then exteriorized. The myometrium was reapproximated with a running locking 0 Monocryl. We inspected very carefully for hemostasis. This was under good control. Uterus, tubes and ovaries were noted to be grossly normal. We removed gross blood clots from the abdomen and returned the uterus to the abdominal cavity. We reinspected for hemostasis. It remained good throughout the procedure. Peritoneum was then reapproximated with a running nonlocking 2-0 Vicryl. Fascia was reapproximated with a running nonlocking 0 Vicryl. Skin edges were reapproximated with subcuticular style 3-0 undyed Vicryl. The wound was dressed with Steri-Strips and sterile dressing. Counts were correct postoperatively x2. The urine remained clear and free-flowing throughout the procedure. Mrs. Alvarado was then transferred to recovery in stable condition. KENIA
--- NOTE | 2017-05-20 12:02 | OB/GYN Progress Note ---
OB-PP Progress Note - General POD:: POD1 Maternal Group B Strep: Negative Maternal blood type: A+ Maternal Rubella Status: Immune - Subjective Date: 05/20/17 Lochia: Minimal Pain: contolled Voiding: voiding Nausea or Vomiting Present: No - Objective Vital Signs: Last Vital Signs Temp 97.7 F 05/20/17 07:00 Pulse 80 05/20/17 07:00 Resp 14 05/20/17 07:00 BP 128/73 05/20/17 07:00 Pulse Ox 100 05/20/17 07:00 Urine Output: good General: alert and oriented Incision: dressed Extremities: non-tender Edema: none Laboratory: Laboratory Results - last 24 hr 05/19/17 05/19/17 05/19/17 12:19 12:19 12:19 WBC 9.5 RBC 4.37 Hgb 13.1 Hct 39.2 MCV 89.7 MCH 30.0 MCHC 33.4 RDW Std Deviation 40.9 Plt Count 266 MPV 10.7 Turbidity < 20 Sodium 141 Potassium 3.9 Chloride 110 H Carbon Dioxide 19 L Anion Gap 12 BUN 6.0 L Creatinine 0.6 L GFR Calculation 122 BUN/Creatinine Ratio 10 Glucose 81 Calculated Osmolality 268 Calcium 9.6 Total Bilirubin 0.40 Icterus Index < 2 AST 18 ALT 31 Alkaline Phosphatase 120 Total Protein 7.3 Albumin 3.7 Globulin 3.6 Albumin/Globulin Ratio 1.0 L Specimen Hemolysis < 15 Ur Collection Type Urine Color Urine Clarity Urine pH Ur Specific Geff Urine Protein Urine Glucose (UA) Urine Ketones Urine Occult Blood Urine Nitrate Urine Bilirubin Urine Urobilinogen Ur Leukocyte Esterase Urine RBC Urine WBC Amorphous Sediment Urine Bacteria Ur Culture Indicated? Blood Type A Positive Antibody Screen Negative 05/19/17 05/19/17 13:00 21:32 WBC 18.6 H D RBC 3.88 L Hgb 11.8 L Hct 34.9 L MCV 89.9 MCH 30.4 MCHC 33.8 RDW Std Deviation 40.4 Plt Count 214 MPV 10.7 Turbidity Sodium Potassium Chloride Carbon Dioxide Anion Gap BUN Creatinine GFR Calculation BUN/Creatinine Ratio Glucose Calculated Osmolality Calcium Total Bilirubin Icterus Index AST ALT Alkaline Phosphatase Total Protein Albumin Globulin Albumin/Globulin Ratio Specimen Hemolysis Ur Collection Type Urine, clean catch Urine Color Yellow Urine Clarity Sl cloudy Urine pH 7.5 Ur Specific Geff 1.010 L Urine Protein Negative Urine Glucose (UA) Negative Urine Ketones Negative Urine Occult Blood Negative Urine Nitrate Negative Urine Bilirubin Negative Urine Urobilinogen 0.2 Ur Leukocyte Esterase 1+ A Urine RBC None seen Urine WBC 10-20 H Amorphous Sediment Many Urine Bacteria 2+ H Ur Culture Indicated? Cult reflexed &setup Blood Type Antibody Screen - Assessment Assessment: SP, Primary C/S - Plan Plan: routine care
[2017-05-21] MEDS: IBUPROFEN 800 MG TABLET PO PRN ×2 (00:22→08:14)
[2017-05-21] MEDS: SIMETHICONE 80 MG CHEWABLE TABLET PO SCH ×3 (00:24→14:34)
[2017-05-21] MEDS: HYDROCODONE/APAP 5mg/325mg TABLET PO PRN ×4 (05:20→21:42)
--- NOTE | 2017-05-21 07:57 | OB/GYN Progress Note ---
OB-PP Progress Note - General PPD2 POD:: POD2 Maternal Group B Strep: Negative Maternal blood type: A+ Maternal Rubella Status: Immune - Subjective Date: 05/21/17 Lochia: Moderate Pain: contolled Voiding: voiding Nausea or Vomiting Present: No - Objective Vital Signs: Last Vital Signs Temp 98.5 F 05/21/17 07:00 Pulse 85 05/21/17 07:00 Resp 18 05/21/17 07:00 BP 121/80 05/21/17 07:00 Pulse Ox 95 05/21/17 07:00 General: alert and oriented Cardiovascular: regular rate,rhythm Respiratory: non-labored Abdomen: fundus firm Incision: normal Extremities: non-tender Edema: none - Assessment Assessment: SP, Primary C/S - Plan Plan: routine care (Plan dismissal POD#3)
--- NOTE | 2017-05-21 08:01 | Discharge Instructions ---
Discharge Plan - Med Rec/Dispo Referrals/Follow Up: Lance Clinton DO [Physician] - Satya Instructions: [facility] Delivery Prescriptions: New Ibuprofen [Motrin] 800 mg PO Q8H PRN #30 tab PRN Reason: Pain Hydrocodone/APAP 5/325 [[place] 5/325] 1 - 2 tab PO Q4H PRN #30 tab PRN Reason: Pain Continue Butalb/Acetaminophen/Caffeine [Fioricet] 1 each PO PRN Vit 108/Iron/Folic AC [ One Tablet] 1 tab PO DAILY Discontinued Acetaminophen [Tylenol] 1,000 mg PO Q5H - Disposition 01 Discharged Home, Self-Care
[2017-05-21] MEDS: DOCUSATE CALCIUM 240 MG CAPSULE PO SCH (08:14)
--- NOTE | 2017-05-21 12:11 | Consult Note ---
- Consultation Anesthesia consult for post dural puncture headache Pt and in room during discussion and assessment of headache. Pt recently had multiple attempts at spinal anesthesia for 05/19/17 and is currently complaining of a headache. This headache is in the frontal and occipital region and travels down the neck. Pt states that it is more severe when sitting or standing and relieved by laying flat. Slight nausea and blurred vision is occuring as well. Discussed multiple options; very conservative- fluids, laying flat, caffeine, and pain medication; less conservative- sphenopalatine ganglion block, along with other conservative measures if necessary; least conservative- blood patch. Pt opts to go with the most conservative option at this time. Pt aware and agrees to call anesthesia if she decides that the pain is too severe and would like to attempt another option for pain control. Discusses plan with Deena ESCOBEDO and will help pt push oral fluids, oral caffeinated beverages, and positioning.
[2017-05-21 12:13] VITALS: RESP 16
[2017-05-22] MEDS: SIMETHICONE 80 MG CHEWABLE TABLET PO SCH ×2 (00:13→09:42)
[2017-05-22] MEDS: HYDROCODONE/APAP 5mg/325mg TABLET PO PRN ×2 (04:28→09:42)
[2017-05-22] MEDS: IBUPROFEN 800 MG TABLET PO PRN (08:26)
--- NOTE | 2017-05-22 08:38 | OB/GYN Progress Note ---
OB-PP Progress Note - General PPD3 POD:: POD3 - Subjective Date: 05/22/17 Lochia: Minimal Pain: contolled Voiding: voiding Nausea or Vomiting Present: No - Objective Vital Signs: Last Vital Signs Temp 98.0 F 05/22/17 00:00 Pulse 97 05/22/17 00:00 Resp 16 05/22/17 00:00 BP 114/76 05/22/17 00:00 Pulse Ox 99 05/22/17 00:00 General: alert and oriented Cardiovascular: regular rate,rhythm Respiratory: non-labored Abdomen: fundus firm Incision: normal Extremities: non-tender - Assessment Assessment: SP, Primary C/S - Plan Plan: routine care, discharge home
[2017-05-22] MEDS: DOCUSATE CALCIUM 240 MG CAPSULE PO SCH (10:45)
[2017-05-22] MEDS ORDERED: ONDANSETRON ODT 4 MG TABLET PO PRN (10:49)
[2017-05-22 13:11] VITALS: BP 126/86; PULSE 86; TEMP 97.6; O2SAT 98
--- NOTE | 2017-05-22 22:16 | Anesthesia Postoperative Note ---
- Date and Time Date: 05/22/17 Time: 11:30 - Status Patient Participated in Evaluation: Patient Participated in Person Vital Signs: Temperature 97.6 F 05/22/17 13:11 Pulse Rate 86 05/22/17 13:11 Respiratory Rate 16 05/22/17 13:11 Blood Pressure 126/86 05/22/17 13:11 Pulse Oximetry 98 05/22/17 13:11 Respiratory Function: Airway Patent Cardiovascular Function: Regular Pulse Mental Status: Alert and Oriented Pain Intensity: 4 (PDPH) Hydration: Taking PO Fluids Complications During Recover: None Apparent Post Anesthesia Care Notes: post dural puncture headache following spinal for . Pt following conservative measures for management of PDPH and does not want to attempt any other treatments. She states that her headache is tolerable and will be able to tolerate it for the next several days. Advised to return to ED if she desires additional intervention from anesthesia. - Follow-Up Instructions Instructions: Per Surgeon
== END 2017-05-22 13:30 | disposition home or self-care (01) | DRG 766 ==
LOC: MC 05-19 11:57
PROVIDERS: ADMIT Obstetrics & Gynecology; ATTEND Obstetrics & Gynecology